=== PATIENT | male | born 1965 | race Caucasian/White ===

== ENCOUNTER 2017-01-19 10:02 | Outpatient (CLI) | payer OTHER | END 2017-01-19 10:03 | disposition home or self-care (01) | DX: I66.9 Occlusion and stenosis of unspecified cerebral artery (principal); R56.9 Unspecified convulsions ==

== ENCOUNTER 2017-06-17 13:43 | Outpatient (CLI) | payer OTHER | END 2017-06-17 13:44 | disposition home or self-care (01) | LOC: DI 13:43 | PROVIDERS: ATTEND Internal Medicine Interventional Cardiology | DX: I25.10 Atherosclerotic heart disease of native coronary artery without angina pectoris (principal); I51.7 Cardiomegaly; I77.810 Thoracic aortic ectasia | CPT/HCPCS: 93306 ==

== ENCOUNTER 2017-06-30 19:17 | Outpatient (CLI) | payer OTHER | END 2017-06-30 19:18 | disposition home or self-care (01) | LOC: DI 19:17 | PROVIDERS: ATTEND Physician Assistant Medical | DX: Z53.9 Procedure and treatment not carried out, unspecified reason (principal) ==

== ENCOUNTER 2017-07-02 18:53 | Outpatient (CLI) | payer OTHER ==
--- NOTE | 2017-07-03 09:34 | XRAY Report ---
TWO-VIEW THORACIC SPINE: 07/02/2017 CLINICAL INDICATION: Back pain. FINDINGS: Frontal and lateral views of the thoracic spine demonstrate normal height and alignment of the vertebral bodies. The disk spaces are preserved. Postoperative changes of cardiac surgery are incidentally noted. IMPRESSION: NORMAL THORACIC SPINE. JOB #: [id number] EXT JOB #:
--- NOTE | 2017-07-03 09:36 | XRAY Report ---
THREE-VIEW CERVICAL SPINE: 07/02/2017 CLINICAL INDICATION: Chronic pain. FINDINGS: AP, lateral, odontoid views of the cervical spine demonstrate mild degenerative disk disea se at C5-6 and C6-7. There is no evidence of fracture or subluxation. The prevertebral soft tissues are unremarkable. IMPRESSION: MILD DEGENERATIVE CHANGES. NO EVIDENCE OF FRACTURE. JOB #: [id number] EXT JOB #:[id number]
== END 2017-07-02 18:54 | disposition home or self-care (01) ==
LOC: DI 18:53
PROVIDERS: ATTEND Physician Assistant Medical
DX: M50.322 Other cervical disc degeneration at C5-C6 level (principal); M54.6 Pain in thoracic spine
CPT/HCPCS: 72040; 72070

== ENCOUNTER 2019-07-26 15:12 | Outpatient (CLI) | payer OTHER ==
--- NOTE | 2019-07-28 12:04 | Ultrasound Report ---
Reason: DYSPHAGIA Procedure Date: 07/26/2019 Accession Number: [id number] / [id number] Procedure: US - Head or Neck Soft Tissue CPT Code: FULL RESULT: EXAM: THYROID ULTRASOUND EXAM DATE: 07/26/2019 03:24 PM. CLINICAL HISTORY: Dysphagia. COMPARISON: None. TECHNIQUE: Real time sonographic imaging of the thyroid was performed by the land acquisition specialist. Multiple commercial pest control representative static images were saved for review. FINDINGS: THYROID GLAND: Right Lobe: 4.3 x 1.4 x 1.6 cm, volume 4.9 cc. Normal background echotexture. Right Lobe Nodules: A hypoechoic solid nodule about the posterior mid gland measures 4 x 5 x 7 mm. Left Lobe: 4.5 x 1.3 x 1.7 cm, volume 5.2 cc. Normal background echotexture. Left Lobe Nodules: None. Isthmus: 0.4 cm AP. Isthmic Nodules: None. LYMPH NODES: No adenopathy demonstrated in the central or lateral compartment. OTHER: None. IMPRESSION: 1. 7 mm hypoechoic solid right mid thyroid nodule. This does not meet TRUMAN criteria for biopsy at this time but may followed sonographically and 12-24 months. 2. No thyromegaly. Management recommendations are based on 2015 [employer] [employer] Management Guidelines for Adult Patients with Thyroid Nodules and Differentiated Thyroid Cancer. RADIA
== END 2019-07-26 15:13 | disposition home or self-care (01) ==
LOC: DI 15:12
PROVIDERS: ATTEND Physician Assistant Medical
DX: E04.1 Nontoxic single thyroid nodule (principal); R13.10 Dysphagia, unspecified
CPT/HCPCS: 76536

== ENCOUNTER 2019-08-15 10:35 | Outpatient (CLI) | payer OTHER ==
[2019-08-15 11:20] LABS: BASOPHILS # (AUTO) 0.1 10^3/uL (0.0-0.1); BASOPHILS % (AUTO) 0.8 %; EOSINOPHILS # (AUTO) 0.3 10^3/uL (0.0-0.7); EOSINOPHILS % (AUTO) 3.6 %; LYMPHOCYTES # (AUTO) 1.9 10^3/uL (1.5-3.5); LYMPHOCYTES % (AUTO) 21.3 %; MEAN CORPUSCULAR HEMOGLOBIN 30.8 pg (27.0-31.0); MEAN CORPUSCULAR HGB CONC 32.4 g/dL (32.0-36.0); MEAN CORPUSCULAR VOLUME 95.2 fL (80.0-94.0); MEAN PLATELET VOLUME 9.2 fL (7.4-11.4); MONOCYTES # (AUTO) 0.6 10^3/uL (0.0-1.0); MONOCYTES % (AUTO) 6.7 %; NEUTROPHILS % (AUTO) 67.3 %; PLT - PLATELET COUNT 257 10^3/uL (130-450); RED BLOOD COUNT 5.19 10^6/uL (4.70-6.10); RED CELL DISTRIBUTION WIDTH 12.5 % (12.0-15.0); WHITE BLOOD COUNT 8.9 x10^3/uL (4.8-10.8)
[2019-08-15 11:38] LABS: ALBUMIN 4.6 g/dL (3.2-5.5); ALBUMIN/GLOBULIN RATIO 1.8 (1.0-2.2); ALKALINE PHOSPHATASE 47 IU/L (42-121); ALT ALANINE AMINOTRANSFERASE 28 IU/L (10-60); AST ASPARTATE AMINOTRANSFERASE 24 IU/L (10-42); BILIRUBIN,TOTAL 1.4 mg/dL (0.2-1.0); BUN - BLOOD UREA NITROGEN 14 mg/dL (6-20); CALCIUM 9.5 mg/dL (8.5-10.3); CARBON DIOXIDE - CO2 27 mmol/L (21-32); CHLORIDE 106 mmol/L (101-111); CHOL/HDL RATIO 3.1 (<5.0); CHOLESTEROL 164 mg/dL; CREATININE 1.1 mg/dL (0.6-1.2); GFR - MDRD 69 (>89); GLUCOSE 112 mg/dL (70-100); HDL CHOLESTEROL 53 mg/dL; LDL CHOLESTEROL,CALCULATED 92 mg/dL; LDL/HDL RATIO 1.7 (<3.6); SODIUM 141 mmol/L (135-145); TOTAL PROTEIN 7.2 g/dL (6.7-8.2); VLDL CHOLESTEROL 19 mg/dL
== END 2019-08-15 10:36 | disposition home or self-care (01) ==
LOC: LAB 10:35
PROVIDERS: ATTEND Physician Assistant Medical
DX: Z00.00 Encounter for general adult medical examination without abnormal findings (principal); E78.5 Hyperlipidemia, unspecified; Z12.5 Encounter for screening for malignant neoplasm of prostate
CPT/HCPCS: 36415; 80053; 80061; 83721; 84153; 84443; 85025

== ENCOUNTER 2019-08-19 18:03 | Outpatient (CLI) | payer OTHER ==
--- NOTE | 2019-08-20 14:27 | MRI Report ---
Reason: STRAIN OF MUSCLE, FASCIA AND TENDON OF RT ARM Procedure Date: 08/19/2019 Accession Number: [id number] / [id number] Procedure: MRI - Shoulder RT W/O CPT Code: Final Report FULL RESULT: EXAM: RIGHT SHOULDER MRI WITHOUT CONTRAST EXAM DATE: 08/19/2019 06:50 PM. CLINICAL HISTORY: Muscle strain. COMPARISON: None. TECHNIQUE: Multiplanar, multisequence T1-weighted and fluid-sensitive sequences of the shoulder without contrast. Other: None. FINDINGS: Acromioclavicular Region: The acromion is type II. The acromioclavicular joint is unremarkable. The coracoacromial and coracoclavicular ligaments are intact. A minimal amount of fluid is in the subacromial/subdeltoid bursa. Glenohumeral Region: No subluxation. No effusion or loose bodies. The articular cartilage is unremarkable. The glenohumeral ligaments and joint capsule are unremarkable. Bone Marrow: No fractures. An intraosseous ganglion is in the periphery of the greater tuberosity. Labrum: A single image demonstrates a linear focus of increased signal in the posterior-superior labrum on series 501, image 12). Musculature/Rotator Cuff: The subscapularis, supraspinatus, infraspinatus, and teres minor tendons are intact. No edema or fatty atrophy. Biceps Tendon: The long head of the biceps tendon and biceps hallie are intact. Other: The subcutaneous tissues are unremarkable. IMPRESSION: 1. Potential tear of the posterior-superior labrum. An MRI arthrogram could be used for confirmation if clinically indicated. 2. Minimal subacromial/subdeltoid bursitis. RADIA
== END 2019-08-19 18:04 | disposition home or self-care (01) ==
LOC: DI 18:03
PROVIDERS: ATTEND Physician Assistant Medical
DX: M75.51 Bursitis of right shoulder (principal)

== ENCOUNTER 2020-07-12 18:50 | Outpatient (CLI) | payer OTHER ==
--- NOTE | 2020-07-13 08:49 | Ultrasound Report ---
PROCEDURE: Head or Neck Soft Tissue INDICATIONS: THYROID NODULE TECHNIQUE: Real-time scanning was performed of the thyroid gland, with image documentation. COMPARISON: None FINDINGS: Right: Thyroid lobe measures 4.4 x 1.2 x 2.1 cm, and is homogeneous in echotexture. Left: Thyroid lobe measures 4.2 x 1.2 x 1.4 cm, and is homogenous in echotexture. Isthmus: 3 mm thick. Nodule number: One Location: Mid right lobe Size: 0.5 x 0.4 x 0.6 cm. Composition: Solid Echogenicity: Anechoic Shape: wider than tall. Margins: Smooth Echogenic foci: None Total points: 2 ACR TI-RADS category: Not suspicious. IMPRESSION: Subcentimeter right middle lobe nodule (not suspicious) No follow-up necessary. ACR TI-RADS definitions and recommendations: TI-RADS 1 (benign): 0 points. FNA not needed. TI-RADS 2 (not suspicious): 2 points. FNA not needed. TI-RADS 3 (mildly suspicious): 3 points. ? FNA if 2.5 cm or larger, follow up if 1.5 cm or larger (at 1, 3, and 5 years). TI-RADS 4 (moderately suspicious): 4-6 points. ? FNA if 1.5 cm or larger, follow up if 1 cm or larger (at 1, 2, 3, and 5 years). TI-RADS 5 (highly suspicious): 7 points or more. ? FNA if 1 cm or larger, follow up if 0.5 cm or larger (every year for 5 years). Reviewed by: Gerardo Garcia MD on 07/13/2020 8:48 AM PDT Approved by: Gerardo Garcia MD on 07/13/2020 8:48 AM PDT Station ID: [id number]
== END 2020-07-12 18:51 | disposition home or self-care (01) ==
LOC: DI 18:50
PROVIDERS: ATTEND Physician Assistant Medical
DX: E04.1 Nontoxic single thyroid nodule (principal)
CPT/HCPCS: 76536

== ENCOUNTER 2020-08-14 09:54 | Outpatient (CLI) | payer OTHER ==
[2020-08-14 10:13] LABS: BASOPHILS # (AUTO) 0.1 10^3/uL (0.0-0.1); BASOPHILS % (AUTO) 0.7 %; EOSINOPHILS # (AUTO) 0.7 10^3/uL (0.0-0.7); EOSINOPHILS % (AUTO) 7.7 %; HGB - HEMOGLOBIN 16.4 g/dL (14.0-18.0); LYMPHOCYTES # (AUTO) 2.2 10^3/uL (1.5-3.5); LYMPHOCYTES % (AUTO) 25.6 %; MEAN CORPUSCULAR HEMOGLOBIN 31.5 pg (27.0-31.0); MEAN CORPUSCULAR HGB CONC 32.8 g/dL (32.0-36.0); MEAN CORPUSCULAR VOLUME 96.2 fL (80.0-94.0); MEAN PLATELET VOLUME 8.9 fL (7.4-11.4); MONOCYTES # (AUTO) 0.6 10^3/uL (0.0-1.0); MONOCYTES % (AUTO) 6.9 %; NEUTROPHILS % (AUTO) 58.9 %; PLT - PLATELET COUNT 264 10^3/uL (130-450); RED CELL DISTRIBUTION WIDTH 12.3 % (12.0-15.0); WHITE BLOOD COUNT 8.5 x10^3/uL (4.8-10.8)
[2020-08-14 10:39] LABS: ALBUMIN 4.4 g/dL (3.2-5.5); ALBUMIN/GLOBULIN RATIO 1.6 (1.0-2.2); ALKALINE PHOSPHATASE 51 IU/L (42-121); ALT ALANINE AMINOTRANSFERASE 27 IU/L (10-60); AST ASPARTATE AMINOTRANSFERASE 23 IU/L (10-42); BILIRUBIN,TOTAL 1.3 mg/dL (0.2-1.0); BUN - BLOOD UREA NITROGEN 14 mg/dL (6-20); CALCIUM 9.2 mg/dL (8.5-10.3); CARBON DIOXIDE - CO2 27 mmol/L (21-32); CHLORIDE 103 mmol/L (101-111); CHOL/HDL RATIO 2.6 (<5.0); CHOLESTEROL 162 mg/dL; CREATININE 1.1 mg/dL (0.6-1.2); GLUCOSE 106 mg/dL (70-100); HDL CHOLESTEROL 62 mg/dL; LDL CHOLESTEROL,CALCULATED 87 mg/dL; LDL/HDL RATIO 1.4 (<3.6); SODIUM 139 mmol/L (135-145); TOTAL PROTEIN 7.1 g/dL (6.7-8.2); VLDL CHOLESTEROL 13 mg/dL
[2020-08-15 10:11] LABS: HEPATITIS C ANTIBODY NON-REACTIVE (NON-REACTIVE)
== END 2020-08-14 09:55 | disposition home or self-care (01) ==
LOC: LAB 09:54
PROVIDERS: ATTEND Physician Assistant Medical
DX: Z00.00 Encounter for general adult medical examination without abnormal findings (principal); Z11.59 Encounter for screening for other viral diseases
CPT/HCPCS: 36415; 80053; 80061; 83721; 84153; 84443; 85025; 86803

== ENCOUNTER 2021-01-03 07:17 | Day surgery (SDC) | payer OTHER ==
[2021-01-03] MEDS ORDERED: LACTATED RINGERS 1,000 ML IV ONE ×2 (07:20→08:59)
[2021-01-03] MEDS ORDERED: MIDAZOLAM 2 MG/2 ML VIAL ONE (08:40)
[2021-01-03] MEDS ORDERED: fentaNYL 250 MCG/5 ML VIAL ONE (08:40)
[2021-01-03 09:13] VITALS: BP 124/84
== END 2021-01-03 07:18 | disposition home or self-care (01) ==
LOC: SDS 07:17
PROVIDERS: ATTEND Surgery
DX: Z12.11 Encounter for screening for malignant neoplasm of colon (principal); K57.30 Diverticulosis of large intestine without perforation or abscess without bleeding; I10 Essential (primary) hypertension; Z86.73 Personal history of transient ischemic attack (TIA), and cerebral infarction without residual deficits; Z86.010 Personal history of colon polyps
CPT/HCPCS: 45378; J3010; J7120

== ENCOUNTER 2021-03-08 17:24 | Outpatient (CLI) | payer OTHER ==
--- NOTE | 2021-03-08 21:05 | XRAY Report ---
PROCEDURE: Knee 3 View RT INDICATIONS: SPRAIN OF RIGHT KNEE TECHNIQUE: 3 views of the right knee(s) were acquired. COMPARISON: None. FINDINGS: Bones: No fractures or dislocations. No suspicious bony lesions. Soft tissues: No joint effusion. No suspicious soft tissue calcifications. IMPRESSION: No evidence acute bony abnormality of the right knee. Reviewed by: Levi Morales MD on 03/08/2021 9:04 PM PDT Approved by: Levi Morales MD on 03/08/2021 9:04 PM PDT Station ID: [id number]
== END 2021-03-08 23:59 | disposition home or self-care (01) ==
LOC: DI.N 17:24
PROVIDERS: ATTEND Family Medicine
DX: S83.8X1A Sprain of other specified parts of right knee, initial encounter (principal)

== ENCOUNTER 2021-03-28 14:26 | Outpatient (CLI) | payer OTHER ==
--- NOTE | 2021-03-28 15:05 | XRAY Report ---
PROCEDURE: Knee 2 View RT INDICATIONS: SPRAIN OF PARTS OF R KNEE TECHNIQUE: 2 views of the right knee(s) were acquired. COMPARISON: None. FINDINGS: Bones: No fractures or dislocations. No suspicious bony lesions. Soft tissues: No joint effusion. No suspicious soft tissue calcifications. IMPRESSION: No acute fracture. No osseous lesion. If symptoms and/or clinical suspicion for patholog y continue, further assessment with repeat plain films, or advanced imaging (e.g., CT, MRI, or bone s can) is recommended for further assessment. Reviewed by: Whit Vidal MD on 03/28/2021 3:03 PM PDT Approved by: Whit Vidal MD on 03/28/2021 3:03 PM PDT Station ID: [id number]
== END 2021-03-28 23:59 | disposition home or self-care (01) ==
LOC: DI.N 14:26
PROVIDERS: ATTEND Physician Assistant
DX: S83.8X1A Sprain of other specified parts of right knee, initial encounter (principal)

== ENCOUNTER 2021-06-26 10:48 | Outpatient (CLI) | payer OTHER ==
--- NOTE | 2021-06-26 12:59 | MRI Report ---
PROCEDURE: Knee RT W/O INDICATIONS: INTERNAL DERANGEMENT OF RIGHT KNEE TECHNIQUE: Noncontrast sagittal PD fast spin echo and T2 fast spin echo with fat saturation, sagittal 3-D gradie nt sequence with fat saturation; coronal T1 spin echo and PD fast spin echo with fat saturation, and axial PD fast spin echo with fat saturation through the knee. COMPARISON: None. FINDINGS: Menisci: Medial meniscus: Ill-defined subtle tear involving the posterior horn with abnormal signal extending to the superior and inferior articular surface. Lateral meniscus: Intact. Cruciate ligaments: Anterior cruciate ligament: Intact. Posterior cruciate ligament: Intact. Medial structures: The medial collateral ligament appears intact. The semimembranosus tendon appears intact. Visualized portions of the pes anserinus tendons appear normal. No abnormal bursal fluid. Lateral structures: Lateral collateral ligament appears grossly intact. Biceps femoris tendon appears intact. Iliotibial band within normal limits. Popliteus tendon within normal limits. Anterior structures: Mild patellar tendinopathy, with prepatellar and superficial infrapatellar edema. The quadriceps tendon appears intact. Medial and lateral patellofemoral ligaments appear grossly intact. Patellar alignment is normal. Hoffa's fat pad unremarkable. Bones and cartilage: Bones: Small acute marrow contusion involving the anteromedial femoral condyle. Medial compartment: No focal chondral defect. Lateral compartment: Mild partial-thickness fissuring surface fraying of the weightbearing tibial car tilage. Femoral cartilage appears grossly intact. Patellofemoral compartment: Mild surface fraying of the peripheral medial patellar cartilage. Femoral trochlear cartilage appears intact. Joint space: No joint effusion. No Mckeon?s cyst. No specific evidence of loose body identified. IMPRESSION: Small acute marrow contusion involving the anteromedial femoral condyle. Ill-defined nondisplaced subtle medial meniscal tear involving the posterior horn. Patellar tendinopathy with prominent superficial infrapatellar subcutaneous edema Reviewed by: Gerardo Garcia MD on 06/26/2021 12:58 PM PDT Approved by: Gerardo Garcia MD on 06/26/2021 12:58 PM PDT Station ID: [id number]
== END 2021-06-26 10:49 | disposition home or self-care (01) ==
LOC: DI 10:48
PROVIDERS: ATTEND Physician Assistant
DX: S80.01XA Contusion of right knee, initial encounter (principal); S83.241A Other tear of medial meniscus, current injury, right knee, initial encounter; M67.961 Unspecified disorder of synovium and tendon, right lower leg

== ENCOUNTER 2023-12-15 10:08 | Outpatient (CLI) | payer OTHER ==
[2023-12-15] MEDS ORDERED: iohexoL-300 100 ML VIAL ONE (10:25)
[2023-12-15 10:29] LABS: CREATININE 1.2 mg/dL (0.6-1.3)
[2023-12-15] MEDS: iohexoL-300 100 ML VIAL IVP ONE (11:46)
--- NOTE | 2023-12-15 20:47 | CT Report ---
PROCEDURE: Soft Tissue Neck W INDICATIONS: CERVICAL LYMPHADENOPATHY CONTRAST: Omni 300 100ml TECHNIQUE: After the administration of intravenous contrast, 3.0 mm axial sections acquired from the sella to th e aortic arch. Additional oblique axial 3.0 mm sections acquired through the pharynx. 3 mm thick co reji reformats were generated. For radiation dose reduction, the following was used: automated exp osure control, adjustment of mA and/or kV according to patient size. COMPARISON: None. FINDINGS: Image quality: Excellent. Lymph nodes: No enlarged lymph nodes seen throughout the neck. Vessels: Visualized vasculature appears patent. Neck spaces: The oropharynx, nasopharynx, and pharynx demonstrate no mucosal lesions. The vocal cor ds, false vocal cords, pyriform sinuses, epiglottis, vallecula, and tongue base all appear normal. E xtramucosal spaces appear unremarkable. Glands: The area of clinical concern is marked, which corresponds to a normal-appearing left submand ibular gland. This is minimally more prominent than the normal right submandibular gland. The parotid glands appear normal. The thyroid is normal in size and there are no incidental findings . Miscellaneous: Visualized brain and orbits appear normal. Lung apices appear clear. Superficial so ft tissues appear normal. Bones: No suspicious bony lesions. Visualized sinuses and mastoids appear unremarkable. Sternotomy wires are partially seen. Moderate disc space narrowing can be seen at the C5-C6 level. IMPRESSION: The area of clinical concern corresponds to a normal left submandibular gland. No enlarged lymph nodes can be seen throughout the neck. No suspicious masses are seen. Reviewed by: Calderon Clark MD on 12/15/2023 7:46 PM [place] Approved by: Calderon Clark MD on 12/15/2023 7:46 PM [place] Station ID: [id number]
== END 2023-12-15 10:09 | disposition home or self-care (01) ==
LOC: LAB 10:08
PROVIDERS: ATTEND Physician Assistant Medical
DX: R59.0 Localized enlarged lymph nodes (principal)
CPT/HCPCS: 36415; 70491; 82565; Q9967

== ENCOUNTER 2023-12-28 09:58 | Outpatient (CLI) | payer OTHER ==
[2023-12-28 10:26] LABS: BASOPHILS # (AUTO) 0.1 10^3/uL (0.0-0.1); BASOPHILS % (AUTO) 0.8 %; EOSINOPHILS # (AUTO) 0.3 10^3/uL (0.0-0.7); EOSINOPHILS % (AUTO) 3.5 %; HCT - HEMATOCRIT 51.3 % (42.0-52.0); HGB - HEMOGLOBIN 16.9 g/dL (14.0-18.0); LYMPHOCYTES # (AUTO) 2.1 10^3/uL (1.5-3.5); LYMPHOCYTES % (AUTO) 28.2 %; MEAN CORPUSCULAR HEMOGLOBIN 31.2 pg (27.0-31.0); MEAN CORPUSCULAR HGB CONC 32.9 g/dL (32.0-36.0); MEAN CORPUSCULAR VOLUME 94.6 fL (80.0-94.0); MEAN PLATELET VOLUME 8.8 fL (7.4-11.4); MONOCYTES # (AUTO) 0.5 10^3/uL (0.0-1.0); MONOCYTES % (AUTO) 6.9 %; NEUTROPHILS # (AUTO) 4.5 10^3/uL (1.5-6.6); NEUTROPHILS % (AUTO) 60.5 %; PLT - PLATELET COUNT 280 10^3/uL (130-450); RED BLOOD COUNT 5.42 10^6/uL (4.70-6.10); RED CELL DISTRIBUTION WIDTH 12.2 % (12.0-15.0); WHITE BLOOD COUNT 7.4 x10^3/uL (4.8-10.8)
[2023-12-28 10:40] LABS: ALBUMIN 4.6 g/dL (3.2-5.5); ALBUMIN/GLOBULIN RATIO 1.9 (1.0-2.2); ALKALINE PHOSPHATASE 62 IU/L (42-121); ALT ALANINE AMINOTRANSFERASE 18 IU/L (10-60); AST ASPARTATE AMINOTRANSFERASE 16 IU/L (10-42); BILIRUBIN,TOTAL 0.9 mg/dL (0.2-1.0); BUN - BLOOD UREA NITROGEN 10 mg/dL (6-20); CALCIUM 10.1 mg/dL (8.5-10.3); CARBON DIOXIDE - CO2 30 mmol/L (21-32); CHLORIDE 103 mmol/L (101-111); CHOL/HDL RATIO 3.3 (<5.0); CHOLESTEROL 164 mg/dL; CREATININE 1.2 mg/dL (0.6-1.3); GFR - MDRD 62 (>89); GLUCOSE 115 mg/dL (74-104); HDL CHOLESTEROL 49 mg/dL; LDL CHOLESTEROL,CALCULATED 97 mg/dL; POTASSIUM 4.5 mmol/L (3.5-4.5); SODIUM 137 mmol/L (135-145); TRIGLYCERIDES 89 mg/dL (48-352); VLDL CHOLESTEROL 18 mg/dL
[2023-12-28 10:55] LABS: THYROID STIMULATING HORMONE 1.96 uIU/mL (0.34-5.60)
== END 2023-12-28 09:59 | disposition home or self-care (01) ==
LOC: LAB 09:58
PROVIDERS: ATTEND Physician Assistant Medical
DX: Z00.00 Encounter for general adult medical examination without abnormal findings (principal); I25.10 Atherosclerotic heart disease of native coronary artery without angina pectoris; Z12.5 Encounter for screening for malignant neoplasm of prostate
CPT/HCPCS: 36415; 80053; 80061; 83721; 84153; 84443; 85025